=== PATIENT | female | born 1935 | race Caucasian/White ===

== ENCOUNTER 2020-01-17 11:23 | Emergency (ER) | payer BC ==
[~2020-01-17] VITALS: Ht 157.5 cm; Wt 83.0 kg
[2020-01-17 11:23] VITALS: BP_SYST 160
--- NOTE | 2020-01-17 11:23 | NUR ---
Patient triaged and placed in waiting room. VSS and patient appears in no acute distress at this time. Accompanied by SELF, awaiting available bed, and MD notified of need for MSE.
--- NOTE | 2020-01-17 13:46 | NUR ---
TAKEN TO RADIOLOGY FOR TESTING, THEN PLACED IN BED #5, REPORT GIVEN TO RALPH
--- NOTE | 2020-01-17 14:15 | NUR ---
Patient presented to ER C/O Constipation. Patient ambulatory to ER, A&O x4, afebrile, skin pink and warm, pain 3/10, denies N/V/D Patient states she has intermittent constipation x1 month.
[2020-01-17 15:40] VITALS: BP_SYST 155
--- NOTE | 2020-01-17 15:40 | NUR ---
Patient given written and verbal discharge instructions and verbalizes understanding. ER MD discussed with patient the results and treatment provided. Patient in stable condition. ID arm band removed. Rx of MAGNESIUM CITRATE, FLEETS, KEFLEX given. Patient educated on pain management and to follow up with PMD. Pain Scale 3/10. Opportunity for questions provided and answered. Medication side effect fact sheet provided.
== END 2020-01-17 15:40 | disposition home or self-care (01) ==
LOC: SED 11:23
DX: K59.00 Constipation, unspecified (principal); N39.0 Urinary tract infection, site not specified; Z88.0 Allergy status to penicillin; Z88.1 Allergy status to other antibiotic agents
CPT/HCPCS: 74018; 81002; 99283